=== PATIENT | female | born 1985 | race Caucasian/White ===

== ENCOUNTER 2019-04-16 05:29 | Inpatient (IN) | payer OTHER ==
--- NOTE | 2019-04-07 23:26 | HPE ---
DATE OF PLANNED ADMISSION: 04/16/2019 This lady is a 33-year-old, 3, para 1, who is booked for an elective repeat section, satisfied parity with bilateral tubal ligation by Filshie clip on 04/16/2019. PAST HISTORY: 02/20/2014 at 39 weeks, section for arrest of descent, arrest of dilatation, failure progress, live , 7 pounds 6 ounces. In July of 2017 at 5 weeks, had a spontaneous . ALLERGIES: Has no known allergies. PAST SURGICAL HISTORY: 1. section. 2. Laparoscopy with a ruptured ovarian cyst and questionable endometriosis. RISK FACTORS: She has had a previous section. Her body mass index (BMI) is 42.2. LAB WORK: Her blood work is O positive. Her HIV is negative, hepatitis negative, rapid plasma reagin (RPR) negative, rubella immune. Varicella immune. Pap was within normal limits. Urine was positive for gram-positive bacteria. Gonorrhea and chlamydia are negative. 1-hour glucose was 167. Her 3-hour glucose tolerance test (GTT), her fasting was 96, her 1-hour was 154, her 2-hour was 95, and her 3 hour was 107. Group B streptococcus (GBS) is pending. The rest the examination unremarkable. She is normocephalic, atraumatic. Neck full range of motions. Pupils equal and reactive to light. Distal pulses are symmetric. No evidence of deep venous thrombosis (DVT), pulmonary embolism (PE), or superficial phlebitis. Chest is clear bilaterally to bases. No wheezes or rhonchi. No costovertebral angle (CVA) tenderness. Abdomen is soft. Appropriate symphysis fundus height. Four quadrant bowel sounds are noted, and vertex presenting. No rashes, lesions, or pruritus. No arthralgia or myalgia. No complaint of joint pain. No complaint of cough, wheezes, shortness of breath, or dyspnea on exertion. Not bleeding. Neurologically complete. No incontinence, urgency, or frequency. No nausea, vomiting, diarrhea, or constipation. She has no diabetic issues. She has no gynecological (WELL LOGGER) issues. PAST MEDICAL HISTORY: Unremarkable. FAMILY HISTORY: Noncontributory. She does not smoke, drink, abuse drugs. She is to a soldier. Good support and no domestic violence. Presently taking vitamins and aspirin. We discussed the risks and benefits of repeat section, including hemorrhage, infection, perforation, , reoperation, remote possibility of blood transfusion, remote possibility of hysterectomy. Also, the fact the baby may be admitted to the intensive care unit (NICU), possibility of laceration, and we also discussed the bilateral tubal ligation by Filshie clip with satisfied parity. The risks and benefits are less than 1% failure rate, in which there is an intrauterine (IUP) or an ectopic or spontaneous . The post tubal ligation syndrome was discussed, increased pain or decreased pain, increased bleeding or decreased bleeding with periods. Patient expressed understanding of same, signed and witnessed the consent form. We had a 30-minute discussion with examination, and the patient is booked for 04/16/2019. The blood pressure today was 105/58, respirations were 18, pulse was 78. Weight was 243.2 pounds and 5 feet 2 inches.
[2019-04-16] VITALS (9 sets, daily range): BP systolic 94–123; BP diastolic 51–73
[~2019-04-16] VITALS: Ht 157.5 cm; Wt 111.3 kg
[~2019-04-16 05:29] MED LIST: ASPI81TA85 PO; PREN1TAB18 PO
[2019-04-16] MEDS ORDERED: PRENTAB9 PO (06:17)
[2019-04-16] MEDS ORDERED: LACTATED RINGER'S 1000 ML IV STA (06:22)
[2019-04-16] MEDS ORDERED: AZITHROMYCIN INJ 500 MG, VIAL MATE ADAPTER 1 EACH in D5W 250 ML IV ONE (06:30)
[2019-04-16] MEDS ORDERED: BICITRA 30ML SOLN UDC PO ONE (06:30)
[2019-04-16 06:47] LABS: HEMOGLOBIN 11.9 g/dl (12.0-15.5); MEAN CORPUSCULAR HEMOGLOBIN 29.5 pg (27.0-33.0); MEAN CORPUSCULAR VOLUME 86.8 fl (80.0-96.0); PLATELET COUNT, AUTOMATED 193 10^3/uL (150-450); RED BLOOD COUNT 4.03 10^6/uL (4.00-5.40); WHITE BLOOD COUNT 7.9 10^3/uL (4.0-10.0)
[2019-04-16] MEDS: LR 1,000 ML IV SCH ×2 (07:13→15:16)
[2019-04-16] MEDS ORDERED: BUPIVACAINE HCL 0.25% 10 ML VIAL As Ordered ONE (07:21)
[2019-04-16] MEDS ORDERED: ACETAMINOPHEN 650 MG SUPP As Ordered ONE (07:21)
[2019-04-16] MEDS ORDERED: NALOXONE INJ 0.4 MG/1 ML VIAL (J2310) IV PRN ×2 (09:04)
[2019-04-16] MEDS ORDERED: METOCLOPRAMIDE INJ 10MG/2ML VIAL (J2765) IV PRN (09:04)
[2019-04-16] MEDS ORDERED: diphenhydrAMINE INJ 50MG/ML VIAL (J1200) IV PRN (09:04)
[2019-04-16] MEDS ORDERED: NALBUPHINE HCL 10 MG/ML AMP (J2300) IV PRN ×2 (09:04→11:00)
[2019-04-16] MEDS ORDERED: ONDANSETRON 4MG/2ML VIAL (J2405) IV PRN ×2 (09:04→11:00)
[2019-04-16] MEDS ORDERED: OXYTOCIN INJ 10 UNITS/ML VIAL (J2590) As Ordered ONE (09:07)
[2019-04-16] MEDS ORDERED: ONDANSETRON 4MG/2ML VIAL (J2405) As Ordered ONE (09:07)
[2019-04-16] MEDS ORDERED: MORPHINE PRES-FREE INJ 10 MG/10 ML VIAL (J2274) As Ordered ONE (09:07)
[2019-04-16] MEDS ORDERED: BUPIVACAINE/DEXTROSE 0.75% 2 ML AMP As Ordered ONE (09:07)
[2019-04-16] MEDS ORDERED: KETOROLAC 60 MG/2 ML VIAL (J1885) As Ordered ONE (09:07)
[2019-04-16] MEDS ORDERED: ePHEDrine SULFATE 25 MG/5 ML(5MG/ML) SYRINGE As Ordered ONE (09:24)
[2019-04-16 09:46] LABS: CORD GAS ABE V 0.5; CORD GAS HCO3 V 26.4 MEQ/L; CORD GAS O2 SAT V 72.2 %; CORD GAS PH V 7.368 UNITS; CORD GAS PO2 V 28.5 mmHg; CORD GAS SBC V 24.2 MEQ/L; CORD GAS TCO2 V 27.9 MEQ/L
[2019-04-16 09:47] LABS: CORD GAS ABE A 0.3; CORD GAS HCO3 A 28.6 MEQ/L; CORD GAS O2 SAT A 31.6 %; CORD GAS PCO2 A 61.5 mmHg; CORD GAS PH A 7.286 UNITS; CORD GAS PO2 A 16.5 mmHg; CORD GAS TCO2 A 30.5 MEQ/L
[2019-04-16] MEDS ORDERED: OXYTOCIN DRIP 30 UNITS in APPROPRIATE DILUENT 1 EA IV SCH (10:31)
[2019-04-16] MEDS ORDERED: MEASLES,MUMPS,RUBELLA VACCINE INJ (MMR-II) (90707) SC SCH (10:45)
[2019-04-16] MEDS ORDERED: IBUPROFEN 600 MG TAB PO PRN (10:45)
[2019-04-16] MEDS ORDERED: ACETAMINOPHEN 500 MG TAB PO PRN (10:45)
[2019-04-16] MEDS ORDERED: ACETAMINOPHEN TAB 650MG DOSE (2X325MG) PO PRN (10:45)
[2019-04-16] MEDS ORDERED: MOM 30ML SUSPENSION UDC PO PRN (10:45)
[2019-04-16] MEDS ORDERED: RHOGAM 300 MCG (1500 IU) INJ (J2790) IM SCH (10:45)
[2019-04-16] MEDS ORDERED: OXYTOCIN INJ 10 UNITS/ML VIAL (J2590) IV ONE (10:45)
[2019-04-16] MEDS ORDERED: OXYTOCIN DRIP 30 UNITS in APPROPRIATE DILUENT 1 EA IV ONE (11:00)
[2019-04-16] MEDS ORDERED: LR 1,000 ML IV SCH (11:00)
[2019-04-16] MEDS ORDERED: OXYTOCIN 30 UNITS IN 0.9% NaCl 500ML IV BAG (J2590) As Ordered ONE (11:00)
[2019-04-16] MEDS ORDERED: fentaNYL 100 MCG/2 ML INJECTION (J3010) As Ordered ONE (11:22)
[2019-04-16] MEDS: fentaNYL 100 MCG/2 ML INJECTION (J3010) IV PRN ×2 (11:25→11:38)
[2019-04-16] MEDS: PERCOCET 5MG/325MG TAB PO PRN ×2 (15:15→21:30)
--- NOTE | 2019-04-16 16:42 | IPN ---
DATE: 04/16/2019 This patient has requested circumcision of her male infant. After discussing the risks and benefits of circumcision, the medical and nonmedical indications, penile block and aftercare, expressed understanding penile block, aftercare and bleeding, signed the consent form. All questions were answered. 20-minute discussion. We await the clearance by the manager of administration.
[2019-04-16] MEDS: DOCUSATE SODIUM 100 MG CAP PO PRN (21:29)
--- NOTE | 2019-04-16 21:48 | RO ---
DATE OF PROCEDURE: 04/16/2019 PREOPERATIVE DIAGNOSIS: Repeat section, satisfied parity. POSTOPERATIVE DIAGNOSIS: Repeat section, satisfied parity, adhesions, polyhydramnios. OPERATION PROPOSED: Repeat section, bilateral tubal ligation by Filshie clip. OPERATION PERFORMED: Repeat section, bilateral tubal ligation by Filshie clip, release of adhesions. SURGEON: Dr. Denny Hernandez JIGSAW OPERATOR: Dinora for extraction, retraction, and visualization. ANESTHESIA: Spinal plus local anesthetic for intraperitoneal procedures. ESTIMATED BLOOD LOSS: 300 mL, polyhydramnios of 5223-3670 mL of clear liquor. DESCRIPTION OF PROCEDURE: After adequate time-out, spinal in place, appropriate antibiotics preoperatively, acetaminophen suppository 1300 mg per rectum, sequentials in place, a Pfannenstiel incision was made through the previous one. Interestingly, on the left side the muscle did not look healthy, looked kind of purply and scarred down and possibly had some type of trauma, either hematoma or some issue a while ago, the patient was not complaining. However, the entire left side had to be brought down with the scarring before actually getting to the peritoneal cavity. The muscle at the end of the procedure did not look any better than at the beginning of the procedure, and the question of devascularization has to be raised. The peritoneum was opened, the bladder was high up anterior, it was brought down. The lower segment was very thinned. We could see hair through the lower segment. An ARM was done, draining 8387-2013 mL of clear liquor. We then delivered a live male weighing 8 pounds, 3620 grams, scores of 9 and 9 at one and five minutes respectfully. Cord around the neck times one. Arterial pH 7.28, base excess 0.3, venous pH 7.36, base excess 0.5. Placenta delivered manually thereafter. Three-vessel cord, membranes and tissues intact. The uterine segment was swept out with a dry towel. There was no evidence of membranes or tissue. The uterus contracted well down on Pitocin. The lower segment was oversewn in two layers imbricating the second layer and reperitonealization was performed. With instrument and pad count correct, we asked the patient if she wanted to continue with the tubal ligation with satisfied parity. She responded in the affirmative. Both tubes were visualized to the fimbriated end, bilateral Filshie clips were applied circumferentially around the midsegment of the tube, which was quite thinned. The tubes were then placed back with the uterus into the cavity. The abdomen was then closed, running stitch for the peritoneum, same for the fascia, interrupted for subcu, Dexon to the skin, Marcaine 0.25% 10 mL and spray and Telfa, and the patient was then taken back to recovery in good condition.
[2019-04-17] MEDS: IBUPROFEN 800 MG TAB PO PRN ×3 (01:10→17:55)
[2019-04-17 02:00] VITALS: BP 101/54
[2019-04-17] MEDS: PERCOCET 5MG/325MG TAB PO PRN ×4 (05:36→20:28)
[2019-04-17 05:49] VITALS: BP 95/55
[2019-04-17] MEDS: LR 1,000 ML IV SCH ×3 (06:22→16:00)
[2019-04-17 07:26] LABS: HEMATOCRIT 30.2 % (36.0-47.0); MEAN CORPUSCULAR HEMOGLOBIN 30.4 pg (27.0-33.0); MEAN CORPUSCULAR HGB CONC 33.1 g/dl (32.0-36.5); MEAN CORPUSCULAR VOLUME 91.8 fl (80.0-96.0); PLATELET COUNT, AUTOMATED 146 10^3/uL (150-450); RED BLOOD COUNT 3.29 10^6/uL (4.00-5.40); WHITE BLOOD COUNT 9.4 10^3/uL (4.0-10.0)
[2019-04-17] MEDS: PRENATAL VITAMINS CHEWABLE TABLET PO SCH (08:32)
[2019-04-17 11:50] VITALS: BP 102/52
[2019-04-17 14:32] VITALS: BP 100/55
[2019-04-17 17:50] VITALS: BP 105/54
[2019-04-17] MEDS: DOCUSATE SODIUM 100 MG CAP PO PRN (20:28)
[2019-04-17 22:01] VITALS: BP 98/58
[2019-04-18] MEDS: IBUPROFEN 800 MG TAB PO PRN (02:01)
[2019-04-18 02:11] VITALS: BP 96/57
[2019-04-18] MEDS: PERCOCET 5MG/325MG TAB PO PRN (06:00)
[2019-04-18 06:31] VITALS: BP 111/65
[2019-04-18] MEDS: PRENATAL VITAMINS CHEWABLE TABLET PO SCH (07:59)
--- NOTE | 2019-04-18 17:51 | IPN ---
DATE: 04/18/2019 This lady had a repeat section and bilateral tubal ligation for satisfied parity, delivered a live- male infant weighing 8 pounds, 3620 grams, scores of 9 and 9 at one and five minutes, respectively. Arterial pH 7.28, base excess 0.3, venous pH 7.36, base excess -0.5. On her first day, we discussed phlebitis, cystitis, mastitis, metritis, cellulitis, diet, exercise pain management, and perineal, breast, and wound care. Presently she is breast-feeding. She has voided, passing gas, and is anxious to have a shower. Her vital signs today: Blood pressure is 98/58, respirations 18, pulse 72, temperature 97.9. Her admitting hemoglobin was 11.9, hematocrit 35.0, platelets were 193. day #1 hemoglobin 10.0, hematocrit 30.2, and platelets are 146. The rest of the examination unremarkable. Normocephalic, atraumatic. Neck: Full range of motion. Pupils equal and reactive to light. Distal pulses symmetric. No evidence of deep vein thrombosis (DVT), pulmonary embolism (PE), or superficial phlebitis. Chest is clear bilaterally bases. No wheezes or rhonchi. No costovertebral angle (CVA) tenderness Abdomen is soft, 4-quadrant bowel sounds. Incision is clean and dry. No complaint of cough, wheezes, shortness breath, or dyspnea on exertion. No nausea, vomiting, diarrhea, or constipation. No rashes, lesions, or pruritus. In summary, we have a and postoperative day #1, anxious for discharge tomorrow. Medications were dispensed prior to tomorrow for discharge. All questions were answered. The patient has a has a 2-week incision check, 6-week check.
--- NOTE | 2019-04-18 18:00 | DSES ---
DATE OF ADMISSION: 04/16/2019 DATE OF DISCHARGE: 04/18/2019 FINAL DIAGNOSIS Term with a history of two prior section for elective repeat section and bilateral tubal ligation. PROCEDURES DONE DURING THIS ADMISSION: 1. Repeat section. 2. Bilateral tubal ligation using Filshie clip CONDITION ON DISCHARGE: Stable. DISCHARGE INSTRUCTIONS: She is instructed to call if there is any severe bleeding, pain or temperature greater than 101. Discharge instruction was given as well as medication was also given by the providers. She will follow up with them in approximately two weeks for an incision check. BRIEF HISTORY: Ruby is a 33-year-old female, 3, para 2-0-0-2 with a history of two prior sections, was admitted for elective repeat section and bilateral tubal ligation. She underwent the above-noted procedures, was then transferred to maternity for postoperative care. Postoperatively she did well, remained afebrile all throughout her hospital stay. On postoperative day #1 her hemoglobin/hematocrit was 10/30.2 with a platelet of 146 and white count of 9.4. She remained in stable condition. On the day of discharge, her physical exam was benign. She was tolerating by mouth well and ambulating without any difficulty. Her lochia was minimal. Discharge instructions were given to the patient and she will be discharged to follow up with for [facility] in approximately two weeks.
== END 2019-04-18 10:00 | disposition home or self-care (01) | DRG 785 ==
LOC: M LDI 05:29 → M OBS 12:20
PROVIDERS: ADMIT Obstetrics & Gynecology; ATTEND Obstetrics & Gynecology
PROC: 10D00Z1 Extraction of Products of Conception, Low, Open Approach (ICD-10-PCS; 2019-04-16)
PROC: 0UL70ZZ Occlusion of Bilateral Fallopian Tubes, Open Approach (ICD-10-PCS; principal; 2019-04-16 07:30)
DX: O34.211 Maternal care for low transverse scar from previous cesarean delivery (principal); Z3A.39 39 weeks gestation of pregnancy; Z37.0 Single live birth; O69.81X0 Labor and delivery complicated by cord around neck, without compression, not applicable or unspecified; Z30.2 Encounter for sterilization